=== PATIENT | female | born 1990 | race Hispanic/Latino ===

== ENCOUNTER → 2018-08-22 | Outpatient (CLI) | payer MEDICAID ==
[~2018-08-22] MED LIST: ALBUTEROL IH; CYCL5TAB PO; ERGO500014 PO; FOLI1TAB15 PO; HYDR200T4 PO; MONTELUKAST PO; PANT40TA25 PO; SERT50TA12 PO; [UNRECOGNIZED DRUG - CODE] PO
== END | disposition home or self-care (01) ==
LOC: RAH 08:49
PROVIDERS: ATTEND Internal Medicine Gastroenterology
DX: K21.9 Gastro-esophageal reflux disease without esophagitis (principal); R13.10 Dysphagia, unspecified
CPT/HCPCS: 74240

== ENCOUNTER → 2025-01-09 | Outpatient (CLI) | payer MEDICAID ==
[~2025-01-09] MED LIST changes: -CYCL5TAB PO; +CYCL5TAB3 PO; -HYDR200T4 PO; +HYDR200T75 PO; -PANT40TA25 PO; +PANT40TA54 PO; +SERT-439 PO; -SERT50TA12 PO; +[UNRECOGNIZED DRUG - CODE] PO; -[UNRECOGNIZED DRUG - CODE] PO
--- NOTE | 2025-01-09 09:40 | HMCIMG ---
US ABDOMINAL COMPLETE HISTORY: Right upper abdominal pain COMPARISON: None TECHNIQUE: Multiple transverse and longitudinal ultrasound images of the abdomen were obtained. FINDINGS: Abdominal aorta and inferior vena cava are unremarkable. The visualized portion of the pancreas is within normal limits. Liver is echogenic consistent with liver parenchymal disease. Liver measures 16 cm. No gallstone is seen. Common duct measures 3 mm. No evidence of gallbladder wall thickening is seen. Both kidneys are seen. Right kidney measures 11.8 x 5.6 x 5.1 cm. Left kidney measures 10.8 x 5.1 x 4.1 cm. No hydronephrosis is seen of the both kidneys. The spleen is grossly unremarkable. IMPRESSION: 1. No gallstone or ductal dilatation is seen. 2. No hydronephrosis is seen.
== END | disposition home or self-care (01) ==
LOC: RAH 08:03
PROVIDERS: ATTEND Internal Medicine Gastroenterology
DX: R10.11 Right upper quadrant pain (principal)
CPT/HCPCS: 76700

== ENCOUNTER 2025-03-04 19:14 | Emergency (ER) | payer MEDICAID ==
[~2025-03-04] VITALS: Ht 162.6 cm; Wt 128.8 kg
--- NOTE | 2025-03-04 19:36 | NUR ---
pt arrived c/o palpitations, feeling anxious. pt has been having palpitations for past couple of days when at rest. pt voiced she has hx of thyroid issues but has not by dx or on any medications. pt appears calm and comfortable no distress noted. pt connected to bus monitor and will contnet
[2025-03-04] MEDS: 0.9%NACL 1000ML 1,000 ML IV ONE (19:59)
[2025-03-04] MEDS: hydrOXYzine 25 MG TABLET PO ONE (19:59)
[2025-03-04] MEDS: acetaMINOPHEN 500 MG TABLET PO ONE (19:59)
--- NOTE | 2025-03-04 20:01 | ERN ---
ED Note History of Present Illness Stated Complaint: PALPITATIONS/HEADACHE Chief Complaint: Palpitations Time Seen by MD: 19:30 Time Seen by Midlevel: 19:30 Dictation: The patient is a 34-year-old female with a history of asthma, PCOS, anxiety, depression who presents to the emergency department with complaints of palpitations for about four days. Patient also reports occasional headache. Patient denies any nausea or vomiting, denies chest pain, denies fevers. Reports feeling anxious. Allergies: Coded Allergies: No Known Drug Allergies (Unverified Allergy, Unknown, 05/10/18) Home Meds Reported Medications Folic Acid (Folic Acid) 1 Mg Tablet, 1 MG PO AM, TAB 05/10/18 Cyclobenzaprine HCl (Cyclobenzaprine HCl) 5 Mg Tablet, 5 MG PO DAILY, TAB 05/10/18 Pantoprazole Sodium (Pantoprazole Sodium) 40 Mg Tablet.dr, 40 MG PO AM, TAB 05/10/18 [Albuterol] No Conflict Check, 2 PUFF IH AD PRN for SHORTNESS OF BREATH 05/10/18 Norethindrone-E.estradiol-Iron (Blisovi Fe 1-20 Tablet) 1 Each Tablet, 1 EACH PO AM, TAB 05/10/18 Hydroxychloroquine Sulfate (Hydroxychloroquine Sulfate) 200 Mg Tablet, 200 MG PO HS, TAB 05/10/18 [Montelukast] No Conflict Check, PO AM 05/10/18 Ergocalciferol (Vitamin D2) (Vitamin D2) 50,000 Unit Capsule, 10564 UNIT PO QWEEK, CAP 05/10/18 Sertraline HCl (Sertraline HCl) 50 Mg Tablet, 50 MG PO HS, TAB 05/10/18 Past Medical History Past Medical History: Anxiety, Asthma, Depression, High Cholesterol, Hypothyroid, Other Additional Past Medical Hx: HX OF PCOS Surgical History: None LMP: March 04, 2025 RN Note Reviewed/Agreed w/PFSH: Yes Review of System Dictation Constitutional: Negative for fever,chills, and weight loss Eyes: Negative for injury, pain,redness, and discharge ENT: Negative for injury,pain or swelling Cardiovascular: Negative for chest pain, and edema positive for palpitations Respiratory: Negative for shortness of breath, cough, and wheezing, Abdomen/GI: Negative for abdominal pain, nausea, vomiting, diarrhea, and constipation Back: Negative for injury and pain : Negative for injury, bleeding and discharge MS/Extremity: Negative for injury and deformity Skin: Negative for rash, and discoloration Neuro: Negative for weakness, numbness, tingling, and seizure positive for headache Psych: Negative for suicide ideation, homicidal ideation, and hallucinations Initial Vital Sign VS Vital Signs Date Time Temp Pulse Resp B/P (MAP) Pulse Ox O2 Delivery O2 Flow Rate FiO2 03/04/25 19:28 98.4 76 20 130/88 96 Room Air 03/04/25 20:37 0 21 Physical Exam Dictation Vital Signs reviewed General Appearance: Alert, oriented x 3, no acute distress, well developed, nourished. Head and Face: non-traumatic. Eyes: PERRL, pink conjunctivas, eyelid no trauma, anterior chamber with arcus senilis. Ears: Pinnas intact and no signs of trauma or erythema ear canals clear and no discharge TM no erythema Nose: No discharge, no bleeding. Oropharynx: Mouth normal, tongue pink. pharynx clear,no erythema, tonsils no exudates, no abscesses noted, mucous membrane moist Neck: Supple, non-tender, no thyromegaly, no masses, no JVD, no bruits Breast:Deferred Chest:No tenderness, no crepitus, no paradoxical movement, no retractions Lungs:Clear, well-ventilated, symmetric, no rales, no wheezing, no rhonchi, no stridor, good breath sounds bilaterally Heart: Regular rate, regular rhythm, no murmur, no gallops Vascular: no peripheral edema, Abdomen: Soft, positive bowel sounds, nondistended, no guarding, nontender, no rebound, no masses no hepatomegaly, no splenomegaly, no Ayon's sign, no hernias. Rectal: Deferred Genital: Deferred Neurological: Normal speech, motor function intact, sensory function intact Musculoskeletal: Neck nontender, full range of motion, back nontender, full range of motion, Extremities: nontender, full range of motion Skin: Color pink, dry, no turgor, no rash, no lacerations, no abrasions, no contusions. Lymphatic: Deferred Results (Laboratory/Radiology) Laboratory/Radiology Laboratory Tests Test 03/04/25 20:00 White Blood Count 8.7 K/uL (4.8-10.8) Red Blood Count 4.54 MIL/uL (4.00-5.50) Hemoglobin 13.6 g/dL (12.0-16.0) Hematocrit 40.8 % (36-48) Mean Corpuscular Volume 89.9 fL (79-99) Mean Corpuscular Hemoglobin 30.0 pg (27.0-33.0) Mean Corpuscular Hemoglobin Concent 33.3 g/dL (32.0-36.0) Red Cell Distribution Width 12.2 % (11.0-15.5) Platelet Count 225 K/uL (130-400) Mean Platelet Volume 10.7 fL (7.5-10.5) H Immature Granulocyte % (Auto) 0.2 % (0-1) Neutrophils (%) (Auto) 60.9 % (40.0-77.0) Lymphocytes (%) (Auto) 30.5 % (21.0-51.0) Monocytes (%) (Auto) 7.0 % (3.0-13.0) Eosinophils (%) (Auto) 1.1 % (0.0-8.0) Basophils (%) (Auto) 0.3 % (0.0-5.0) Neutrophils # (Auto) 5.3 K/uL (1.8-7.7) Lymphocytes # (Auto) 2.7 K/uL (1.0-4.8) Monocytes # (Auto) 0.6 K/uL (0.1-1.0) Eosinophils # (Auto) 0.10 K/uL (0.00-0.70) Basophils # (Auto) 0.03 K/uL (0.00-0.20) Absolute Immature Granulocyte (auto 0.02 K/uL (0-1) Nucleated Red Blood Cells 0.0 % (0.0-0.19) Sodium Level 140 mmol/L (136-145) Potassium Level 4.6 mmol/L (3.5-5.1) Chloride Level 105 mmol/L (101-111) Carbon Dioxide Level 29 mmol/L (21-32) Blood Urea Nitrogen 9 mg/dL (7-18) Creatinine 0.6 mg/dL (0.5-1.0) Glomerular Filtration Rate Calc 122 mL/min (>90) Random Glucose 81 mg/dL (70-105) Total Calcium 8.8 mg/dL (8.5-10.1) Magnesium Level 2.20 mg/dL (1.80-2.40) Total Creatine Kinase 66 U/L (21-232) Troponin I High Sensitivity < 4 ng/L (4-50) L REASON: palpitations ORDERING PHYSICIAN: MIKKI SLADE PROCEDURE: CXR1VW - CHEST 1VW CHEST 1VW HISTORY: Palpitations COMPARISON: 08/23/2002 FINDINGS: A frontal projection of the chest was obtained. No acute pulmonary infiltrates is seen. The heart is normal in size. Prominent interstitial markings are seen. No evidence of aortic calcification is seen. IMPRESSION: 1. No acute pulmonary infiltrate is seen. Labs Reviewed?: Yes EKG: (+) rhythm (Sinus rhythm) EKG Comment: Date:03/01/2025 Time:1928 Ventricular rate:66 DC interval:140 QRS duration:85 QT/QTc:388 EKG interpretation: Sinus rhythm Reviewed by ED Attending no STEMI ED Course ED Course Orders Procedure Category Date Status Time 12 Lead Ekg Tracing- EKG 03/04/25 Logged Technical 19:43 Cbc With Differential LAB 03/04/25 Complete 19:41 Chest 1vw RAD 03/04/25 Resulted 19:41 0.9%Nacl 1000ml (Ns PHA 03/04/25 Complete 1000ml) 20:00 Magnesium LAB 03/04/25 Complete 19:41 Creatine Kinase, Total LAB 03/04/25 Complete 19:41 Troponin I High LAB 03/04/25 Complete Sensitivity 19:41 Urinalysis Profile LAB 03/04/25 Logged 19:41 Basic Metabolic Panel LAB 03/04/25 Complete 19:41 Drug Screen Urine LAB 03/04/25 Logged 19:41 Acetaminophen 500mg PHA 03/04/25 Complete Tab (Tylenol 500mg T 20:00 ,Urine Test LAB 03/04/25 Logged 19:41 Hydroxyzine 25mg Tab PHA 03/04/25 Complete (Atarax 25mg Tab) 20:00 Current Medications Medications (Trade) Dose Ordered Sig/Kathy Route PRN Reason Start Time Stop Time Status Last Admin Dose Admin Acetaminophen (TYLenol 500MG TAB) 1,000 mg ONCE ONCE PO 03/04/25 20:00 03/04/25 20:01 DC 03/04/25 19:59 Hydroxyzine HCl (ATArax 25MG TAB) 25 mg ONCE ONCE PO 03/04/25 20:00 03/04/25 20:01 DC 03/04/25 19:59 Sodium Chloride 1,000 ml @ 0 mls/hr ONCE ONCE IV 03/04/25 20:00 03/04/25 20:01 DC 03/04/25 19:59 Vital Signs Date Time Temp Pulse Resp B/P (MAP) Pulse Ox O2 Delivery O2 Flow Rate FiO2 03/04/25 20:37 98.6 65 20 122/66 100 Room Air* 0 21 03/04/25 19:28 98.4 76 20 130/88 96 Room Air Medical Decision Making MDM The patient is a 34-year-old female with a history of asthma, PCOS, anxiety, depression who presents to the emergency department with complaints of palpitations for about four days. Patient also reports occasional headache. Patient denies any nausea or vomiting, denies chest pain, denies fevers. Reports feeling anxious. CBC showed no leukocytosis, no anemia, chemistry showed no electrolyte imbalance, negative troponins, chest x-ray showed no acute pathology. Patient's EKG sinus rhythm. Physical exam patient is in no acute distress, reports feeling better, stable vital signs, neurologically intact. Patient instructed to follow up with PCP. Labs and imaging discussed with the patient who agrees to follow up PCP. Differential diagnosis: Anxiety, ACS, electrolyte imbalance, dehydration, tach yarrhythmia Need for hospitalization: Patient does not meet criteria for hospitalization. There are no social concerns with this patient. DX & DISP Disposition: Discharge Departure Impression: Primary Impression: Palpitations Additional Impression: Anxiety Condition: Stable Additional Instructions: Please follow up with your primary doctor in 1-2 days if symptoms worsen please return to ER. FOLLOW-UP WITH PRIMARY CARE PROVIDER IN 1 TO 2 DAYS. TAKE MEDICATIONS DIRECTED HERE IN THE EMERGENCY ROOM. OKAY TO CONTINUE HOME MEDICATIONS UNLESS OTHERWISE DISCUSSED DURING YOUR VISIT IN THE EMERGENCY ROOM TODAY. RETURN TO YOUR NEAREST EMERGENCY ROOM IF SYMPTOMS WORSEN OR IF THERE IS NO IMPROVEMENT. CALL 911 IF YOU NEED IMMEDIATE ASSISTANCE. TAKE TYLENOL OR MOTRIN [id number] NEEDED AND IF NO CONTRAINDICATIONS ARE PRESENT. INCREASE ORAL HYDRATION. A WOUND CULTURE OR URINE CULTURE WAS ORDERED HERE IN THE EMERGENCY ROOM DEPARTMENT PLEASE FOLLOW-UP WITH PRIMARY CARE PROVIDER AND ADVISE THEM TO GET REPEAT PORTS FROM OUR FACILITY. IF YOU HAD ANY MIMI WRAP/SPLINTS THAT WERE APPLIED HERE, PLEASE DO NOT REMOVE THEM UNTIL YOU SEE YOUR PRIMARY CARE OR SPECIALTY. Referrals: PORFIRIO MARTINEZ (PCP) Time of Disposition: 21:09 I have reviewed the case, and I agree with, Diagnosis and Plan MIKKI SLADE March 04, 2025 20:01
[2025-03-04 20:09] LABS: BASOPHILS # (AUTO) 0.03 K/uL (0.00-0.20); BASOPHILS % (AUTO) 0.3 % (0.0-5.0); EOSINOPHILS % (AUTO) 1.1 % (0.0-8.0); HEMATOCRIT 40.8 % (36-48); IMMATURE GRANULOCYTE ABSOLUTE 0.02 K/uL (0-1); LYMPHOCYTES # (AUTO) 2.7 K/uL (1.0-4.8); LYMPHOCYTES % (AUTO) 30.5 % (21.0-51.0); MEAN CORPUSCULAR HGB CONC 33.3 g/dL (32.0-36.0); MEAN CORPUSCULAR VOLUME 89.9 fL (79-99); MONOCYTES # (AUTO) 0.6 K/uL (0.1-1.0); NEUTROPHILS # (AUTO) 5.3 K/uL (1.8-7.7); NEUTROPHILS % (AUTO) 60.9 % (40.0-77.0); PLATELET COUNT (AUTO) 225 K/uL (130-400); RED BLOOD CELL COUNT(AUTO) 4.54 MIL/uL (4.00-5.50); RED CELL DISTRIBUTION WIDTH 12.2 % (11.0-15.5); WHITE BLOOD COUNT (AUTO) 8.7 K/uL (4.8-10.8)
[2025-03-04 20:15] LABS: CREATININE 0.6 mg/dL (0.5-1.0); POTASSIUM 4.6 mmol/L (3.5-5.1)
[2025-03-04 20:20] LABS: MAGNESIUM 2.2 mg/dL (1.80-2.40)
--- NOTE | 2025-03-04 20:22 | HMCIMG ---
CHEST 1VW HISTORY: Palpitations COMPARISON: 08/23/2002 FINDINGS: A frontal projection of the chest was obtained. No acute pulmonary infiltrates is seen. The heart is normal in size. Prominent interstitial markings are seen. No evidence of aortic calcification is seen. IMPRESSION: 1. No acute pulmonary infiltrate is seen.
[2025-03-04 21:29] VITALS: BP 102/59; PULSE 61; RESP 20; TEMP 98.1; O2SAT 99
--- NOTE | 2025-03-05 06:24 | EKG ---
[facility] Test Date: 2025-03-04 Test Time: 19:29:20 Pat Name: ROMI BENITEZ Department: [facility] Room: Gender: Female Gta: [id number] : 1990 Requested By: SOPHIA CASTRO Order Number: [id number] Reading MD: Measurements Intervals [place] Rate: 66 P: 56 TX: 140 QRS: 17 QRSD: 85 T: 29 QT: 388 QTc: 405 Interpretive Statements Sinus rhythm No previous ECG available for comparison Please click the below link to view image of tracing.
== END 2025-03-04 21:30 | disposition home or self-care (01) ==
LOC: EDH 19:14
DX: R00.2 Palpitations (principal); F41.9 Anxiety disorder, unspecified; E03.9 Hypothyroidism, unspecified; E78.00 Pure hypercholesterolemia, unspecified; F32.A Depression, unspecified; J45.909 Unspecified asthma, uncomplicated; Z79.899 Other long term (current) drug therapy
CPT/HCPCS: 99285; 71045; 82550; 83735; 84484; 80048; 85025; 36415; 93005; J7030

== ENCOUNTER → 2025-07-13 | Outpatient (CLI) | payer MEDICAID ==
--- NOTE | 2025-07-14 22:20 | HMCIMG ---
EXAM: Nuclear Medicine Gastric Emptying Scan. INDICATION: Suspected gastroparesis. REFERENCE EXAMINATION: None. TECHNIQUE: 2.1 mCi of Tc99m sulfur colloid with egg whites, 2 slices of bread/jam, 4 ounces of water. FINDINGS: Transit of radiopharmaceutical is seen from the stomach into the small bowel. 50% gastric emptying achieved in 34 minutes. IMPRESSION: Scintigraphic findings suggest normal gastric emptying. /[place]
== END | disposition home or self-care (01) ==
LOC: RAH 07:50
PROVIDERS: ATTEND Surgery
DX: K31.84 Gastroparesis (principal)
CPT/HCPCS: 78264; A9541